=== PATIENT | female | born 1945 | race Caucasian/White ===

== ENCOUNTER 2016-07-12 13:17 | Outpatient (CLI) | payer MEDICARE | END 2016-07-12 13:18 | disposition home or self-care (01) | DX: Z12.31 Encounter for screening mammogram for malignant neoplasm of breast (principal) ==

== ENCOUNTER 2017-01-14 06:27 | Outpatient (CLI) | payer MEDICARE | END 2017-01-14 06:28 | disposition home or self-care (01) | LOC: LAB.R 06:27 | PROVIDERS: ATTEND Family Medicine | DX: L72.3 Sebaceous cyst (principal) | CPT/HCPCS: 87070; 87205 ==

== ENCOUNTER 2017-02-09 13:17 | Outpatient (CLI) | payer MEDICARE ==
--- NOTE | 2017-02-09 17:14 | MRI Report ---
EXAM: MRI BRAIN WITHOUT CONTRAST EXAM DATE: 02/09/2017 02:00 PM. CLINICAL HISTORY: TIA. COMPARISON: None. TECHNIQUE: Multiplanar, multisequence T1-weighted and fluid-sensitive MR sequences of the brain were performed. Sequences optimized for routine evaluation. Other: None. IV Contrast: None. FINDINGS: Brain Volume: Normal for age. Parenchyma/Dura: No mass, acute infarct or hemorrhage. No white matter lesions identified. No parench ymal microhemorrhages. Ventricles/Cisterns: No hydrocephalus. No abnormal extra-axial fluid collection or hemorrhage. Sinuses: No acute appearing sinus disease. Bones: No focal pathologic appearing marrow signal changes. Other: None. IMPRESSION: No evidence of acute or subacute infarct, intracranial hemorrhage, mass, midline shift, or hydrocepha preet. No significant white matter disease. Referring Provider Line: [phone] SITE ID: [id number]
== END 2017-02-09 13:18 | disposition home or self-care (01) ==
LOC: DI 13:17
PROVIDERS: ATTEND Family Medicine
DX: G45.9 Transient cerebral ischemic attack, unspecified (principal)
CPT/HCPCS: 70551

== ENCOUNTER 2017-04-22 14:13 | Outpatient (CLI) | payer MEDICARE | END 2017-04-22 14:14 | disposition home or self-care (01) | LOC: LAB.R 14:13 | PROVIDERS: ATTEND Physician Assistant Medical | DX: R31.9 Hematuria, unspecified (principal) | CPT/HCPCS: 87086 ==

== ENCOUNTER 2017-04-26 15:28 | Outpatient (CLI) | payer MEDICARE ==
[2017-04-26 19:16] LABS: BILIRUBIN,URINE NEGATIVE (NEGATIVE); GLUCOSE, URINE (UA) NEGATIVE (NEGATIVE); KETONES,URINE (UA) NEGATIVE (NEGATIVE); LEUKOCYTE ESTERASE, URINE NEGATIVE (NEGATIVE); NITRITE,URINE NEGATIVE (NEGATIVE); OCCULT BLOOD,URINE MODERATE (NEGATIVE); PROTEIN,URINE NEGATIVE (NEGATIVE); UROBILINOGEN,URINE 0.2 (NORMAL) E.U./dL (NORMAL)
[2017-04-26 19:36] LABS: CLARITY,URINE HAZY (CLEAR)
[2017-04-26 19:59] LABS: SQUAMOUS EPITHELIAL CELL,UR FEW Squamous (<= Few)
[2017-04-26 20:00] LABS: AMORPHOUS SEDIMENT,UR Marked /LPF; BACTERIA,URINE None Seen /HPF (None Seen)
== END 2017-04-26 15:29 ==
LOC: LAB.R 15:28
PROVIDERS: ATTEND Family Medicine
DX: R31.9 Hematuria, unspecified (principal)
CPT/HCPCS: 81001; 87086

== ENCOUNTER 2017-08-23 16:03 | Outpatient (CLI) | payer MEDICARE | END 2017-08-23 16:04 | disposition home or self-care (01) | LOC: DI 16:03 | PROVIDERS: ATTEND Family Medicine | DX: Z53.9 Procedure and treatment not carried out, unspecified reason (principal) ==

== ENCOUNTER 2017-09-06 13:44 | Outpatient (CLI) | payer MEDICARE, OTHER ==
--- NOTE | 2017-09-06 17:38 | Ultrasound Report ---
ULTRASOUND LEFT AXILLA: 09/06/2017 CLINICAL INDICATION: Axillary fullness. TECHNIQUE: Real-time scanning was performed with account services representative static images obtained. FINDINGS: Ultrasound of the left axilla was performed, directed to the region of fullness identified by the patient. Unremarkable subcutaneous fat is seen. No solid or cystic mass is appreciated. No axillary adenopathy is seen. IMPRESSION: NEGATIVE EXAMINATION. RECOMMENDATION: Routine annual screening unless otherwise clinically indicated. BI-RADS category 1 negative. TD: 09/06/2017 15:30
--- NOTE | 2017-09-06 17:45 | Mammography Report ---
DIGITAL DIAGNOSTIC BILATERAL MAMMOGRAM: 09/06/2017 CLINICAL INDICATION: Axillary fullness left side. COMPARISON: 07/12/2016, 06/13/2015, 05/14/2014, 03/17/2013. TECHNIQUE: Bilateral CC and MLO views, left true lateral view. A marker was placed in the site of fullness identified by the patient. FINDINGS: The breasts demonstrate scattered fibroglandular densities bilaterally. Punctate, typically benign calcifications are present. No suspicious masses, clustered microcalcifications, or regions of architectural distortion are identified. Specifically, no mammographic abnormality is seen high in the left axilla, at the site indicated by the marker. Please also refer to left breast ultrasound of the same day. IMPRESSION: BENIGN FINDINGS. RECOMMENDATION: Routine annual screening unless otherwise clinically indicated. BI-RADS category 2 benign findings. STANDARD QUALIFYING STATEMENTS 1. This examination was reviewed with the aid of Computed-Aided Detection (CAD) . 2. A negative or benign imaging report should not delay biopsy if clinically suspicious findings are present. Consider surgical consultation if warranted. More than 5 % of cancers are not identified by imaging. 3. Dense breasts may obscure an underlying neoplasm. TD: 09/06/2017 15:34 MARIA ISABEL
== END 2017-09-06 13:45 | disposition home or self-care (01) ==
LOC: DI 13:44
PROVIDERS: ATTEND Family Medicine
DX: R92.8 Other abnormal and inconclusive findings on diagnostic imaging of breast (principal)
CPT/HCPCS: 76642; 77066

== ENCOUNTER 2017-09-27 08:04 | Day surgery (SDC) | payer MEDICARE, OTHER ==
[2017-09-27] MEDS ORDERED: LACTATED RINGERS 1,000 ML IV ONE (08:39)
[2017-09-27] MEDS ORDERED: MIDAZOLAM 2 MG/2 ML VIAL IVP ONE (09:07)
[2017-09-27] MEDS ORDERED: fentaNYL 250 MCG/5 ML VIAL IVP ONE (09:07)
[2017-09-27 10:01] VITALS: BP 116/56
== END 2017-09-27 08:05 | disposition home or self-care (01) ==
LOC: SDS 08:04
PROVIDERS: ATTEND Surgery
PROC: 0DJD8ZZ Inspection of Lower Intestinal Tract, Via Natural or Artificial Opening Endoscopic (ICD-10-PCS; principal; 2017-09-27 09:15)
DX: Z12.11 Encounter for screening for malignant neoplasm of colon (principal); K57.90 Diverticulosis of intestine, part unspecified, without perforation or abscess without bleeding; Z86.010 Personal history of colon polyps; I10 Essential (primary) hypertension; E78.00 Pure hypercholesterolemia, unspecified; F41.9 Anxiety disorder, unspecified; Z87.891 Personal history of nicotine dependence
CPT/HCPCS: G0105; J3010; J7120

== ENCOUNTER 2018-03-30 12:57 | Outpatient (CLI) | payer MEDICARE, OTHER ==
--- NOTE | 2018-03-31 09:15 | DEXA Report ---
Reason: BONE DISORDER Procedure Date: 03/30/2018 Accession Number: [id number] / [id number] Procedure: DEX - Dexa Spine and/or Hip CPT Code: FULL RESULT: EXAM: Dexa Spine and/or Hip DATE: 03/30/2018 1:27 PM CLINICAL HISTORY: BONE DISORDER TECHNIQUE: Dual energy x-ray absorptiometry (DXA) was performed on a [employer] System. Regions measured are the AP Spine, femoral neck, and if needed forearm. COMPARISON: None. In accordance with the International Society for Clinical Densitometry (ISCD) guidelines, data from previous exams may be reanalyzed using current recommendations and techniques. This is done to allow a more accurate basis for comparison with the current study. FINDINGS: The data for the lumbar spine is as follows: BMD (g/cm/cm) T-SCORE Z-SCORE REGION L1 0.770 -3.0 -1.7 L2 0.959 -2.0 -0.7 L3 0.990 -1.8 -0.5 L4 0.995 -1.7 -0.4 TOTAL 0.930 -2.1 -0.8 NOTE: All evaluable vertebrae are used for classification The data for the hip is as follows: BMD (g/cm/cm) T-SCORE Z-SCORE REGION Neck 0.981 -0.4 1.1 TOTAL 1.091 0.7 1.9 NOTE: The femoral neck or total proximal femur, whichever is lowest, is used for classification. IMPRESSION: THE WHO CLASSIFICATION BASED ON THE INTERNATIONAL REFERENCE STANDARD IS OSTEOPENIA. THE FRACTURE RISK IS INCREASED. RECOMMENDATION: Patients with diagnosis of osteoporosis or osteopenia should have regular bone mineral density assessment. For those eligible for Medicare, routine testing is allowed once every 2 years. Testing frequency can be increased for patients who have rapidly progressing disease or for those who are receiving medical therapy to restore bone mass. COMMENT: World Health Organization (WHO) definitions for osteoporosis and osteopenia: NORMAL BMD: T-score at -1.0 or higher, fracture risk is low OSTEOPENIA BMD: T-score between -1.0 and -2.5, fracture risk is increased. OSTEOPOROSIS BMD: T-score at -2.5 or lower, fracture risk is high. National Osteoporosis Foundation recommends: 1. Obtain adequate dietary calcium (at least 1200 mg per day) and vitamin D (400-800 international units per day). 2. Participate, as appropriate, in regular weightbearing and muscle-strengthening exercise. 3. Avoid tobacco use and reduce alcohol and caffeine intake. 4. For more detailed information see the website at www.NOF.org.
== END 2018-03-30 12:58 | disposition home or self-care (01) ==
LOC: DI 12:57
PROVIDERS: ATTEND Family Medicine
DX: M85.89 Other specified disorders of bone density and structure, multiple sites (principal)
CPT/HCPCS: 77080

== ENCOUNTER 2018-10-09 13:19 | Outpatient (CLI) | payer MEDICARE, OTHER ==
--- NOTE | 2018-10-10 08:58 | Mammography Report ---
Reason: SCREENING MAMMO Procedure Date: 10/09/2018 Accession Number: [id number] / [id number] Procedure: SAMANTHA - Screening Mammo w/[facility] CPT Code: FULL RESULT: EXAM: Screening Mammo w/[facility] DATE: 10/09/2018 1:47 PM CLINICAL HISTORY: Screening encounter. Family history of breast cancer in the sister at the age of 76. TECHNIQUE: (B) - Bilateral CC and MLO views were obtained. COMPARISON: 09/06/2017 through 05/14/2014. PARENCHYMAL PATTERN: (A) - The breast(s) demonstrate(s) scattered fibroglandular densities. FINDINGS: There are no suspicious masses, calcifications, or areas of distortion. IMPRESSION: Negative examination. BI-RADS category 1. RECOMMENDATION: (ANNUAL) - Recommend routine annual screening mammography. BI-RADS CATEGORY: (1) - Negative. STANDARD QUALIFYING STATEMENTS: 1. This examination was not reviewed with the aid of Computer-Aided Detection (CAD). 2. A negative or benign imaging report should not preclude biopsy if clinically suspicious findings are present. 3. Dense breasts may obscure an underlying neoplasm. 4. This examination was reviewed with the aid of 3D breast imaging (tomosynthesis).
== END 2018-10-09 13:20 | disposition home or self-care (01) ==
LOC: DI 13:19
DX: Z12.31 Encounter for screening mammogram for malignant neoplasm of breast (principal); Z80.3 Family history of malignant neoplasm of breast
CPT/HCPCS: 77063; 77067

== ENCOUNTER 2019-11-07 10:08 | Outpatient (CLI) | payer MEDICARE, OTHER ==
--- NOTE | 2019-11-14 08:33 | Mammography Report ---
Reason: screening mammo Procedure Date: 11/12/2019 Accession Number: [id number] / [id number] Procedure: MGN - Screening Mammo w/[facility] CPT Code: Final Report FULL RESULT: BILATERAL DIGITAL SCREENING MAMMOGRAM 3D/2D: 11/12/2019 CLINICAL: Routine screening. Comparison is made to exams dated: 10/09/2018 mammogram, 09/06/2017 mammogram, and 07/12/2016 mammogram - [facility]. The tissue of both breasts is predominantly fatty. There are benign masses in both breasts. No significant masses, calcifications, or other findings are seen in either breast. There has been no significant interval change. IMPRESSION: There is no mammographic evidence of malignancy. A 1 year screening mammogram is recommended. This exam was interpreted at Station ID: [id number]. NOTE: For mammograms, a report in lay terms will be sent to the patient. Approximately 15% of breast malignancies will not be visualized mammographically. In the management of a palpable breast mass, a negative mammogram must not discourage biopsy of a clinically suspicious lesion. Electronically Signed By: Norman ballard/staci:11/13/2019 15:30:08 ACR BI-RADS Category 2: Benign Finding(s) 3342F A -Almost entirely fatty 2 Mammogram [id number] 1 year screening B
== END 2019-11-07 10:09 | disposition home or self-care (01) ==
LOC: DI.N 10:08
DX: Z12.31 Encounter for screening mammogram for malignant neoplasm of breast (principal)
CPT/HCPCS: 77063; 77067

== ENCOUNTER 2020-11-28 13:59 | Outpatient (CLI) | payer MEDICARE, OTHER ==
--- NOTE | 2020-12-01 15:52 | Mammography Report ---
BILATERAL DIGITAL SCREENING MAMMOGRAM 3D/2D: 11/28/2020 CLINICAL: Routine screening. Comparison is made to exams dated: 11/12/2019 mammogram, 11/07/2019 mammogram, 10/09/2018 mammogram, mammogram, and 07/12/2016 mammogram - [facility]. The tissue of both breast s is predominantly fatty. There are benign masses in both breasts. No significant masses, calcifications, or other findings are seen in either breast. There has been no significant interval change. IMPRESSION: BENIGN There is no mammographic evidence of malignancy. A 1 year screening mammogram is recommended. This exam was interpreted at Station ID: [id number]. NOTE: For mammograms, a report in lay terms will be sent to the patient. Approximately 15% of breast malignancies will not be visualized mammographically. In the management of a palpable breast mass, a negative mammogram must not discourage biopsy of a clinically suspicious lesion. Electronically Signed By: Norman ballard/staci:11/28/2020 16:52:01 ACR BI-RADS Category 2: Benign Finding(s) 3342F PARENCHYMAL PATTERN: (F) - The breast(s) demonstrate(s) diffuse fatty replacement. BI-RADS CATEGORY: (2) - 2 RECOMMENDATION: (ANNUAL) - Recommend routine annual screening mammography. [id number] 1 year screening LATERALITY: (B)
== END 2020-11-28 14:00 | disposition home or self-care (01) ==
LOC: DI 13:59
DX: Z12.31 Encounter for screening mammogram for malignant neoplasm of breast (principal)

== ENCOUNTER 2021-04-06 12:29 | Outpatient (CLI) | payer MEDICARE, OTHER ==
--- NOTE | 2021-04-06 15:27 | DEXA Report ---
PROCEDURE: Dexa Spine and/or Hip INDICATIONS: OSTEOPENIA TECHNIQUE: Dual energy x-ray absorptiometry (DXA) was performed on a [employer] System. Regions measur ed are the AP Spine, femoral neck, and if needed forearm. COMPARISON: 03/30/2018 FINDINGS: Lumbar Spine: Bone Mineral Density 1.042 g/cm/cm,T score -1.1, osteopenia Left Hip: Bone Mineral Density 1.117 g/cm/cm,T score 0.9, normal Left Femoral Neck: Bone Mineral Density 0.947 g/cm/cm, T score -0.7, normal IMPRESSION: Osteopenia with no significant change in bone mineral density when compared with 8 exam. Patients with diagnosis of osteoporosis or osteopenia should have regular bone mineral density assess ment. For those eligible for Medicare, routine testing is allowed once every 2 years. Testing frequ ency can be increased for patients who have rapidly progressing disease or for those who are receivin g medical therapy to restore bone mass. Reviewed by: Lavell Celestin MD on 04/06/2021 3:26 PM PST Approved by: Lavell Celestin MD on 04/06/2021 3:26 PM PST Station ID: [id number]
== END 2021-04-06 12:30 | disposition home or self-care (01) ==
LOC: DI 12:29
PROVIDERS: ATTEND Family Medicine
DX: M85.88 Other specified disorders of bone density and structure, other site (principal)

== ENCOUNTER 2023-04-29 10:41 | Outpatient (CLI) | payer MEDICARE, OTHER ==
--- NOTE | 2023-04-29 13:22 | XRAY Report ---
PROCEDURE: Chest 2V INDICATIONS: URI TECHNIQUE: 2 views of the chest were acquired. COMPARISON: None. FINDINGS: Surgical changes and devices: None. Lungs and pleura: No pleural effusions or pneumothorax. Lungs are clear. Mediastinum: Mediastinal contours appear normal. Heart size is normal. Bones and chest wall: No suspicious bony lesions. Overlying soft tissues appear unremarkable. IMPRESSION: No acute cardiopulmonary process. Reviewed by: Jane Valente MD on 04/29/2023 1:20 PM PST Approved by: Jane Valente MD on 04/29/2023 1:20 PM [facility] Station ID: [id number]
== END 2023-04-29 10:42 | disposition home or self-care (01) ==
LOC: DI 10:41
PROVIDERS: ATTEND Physician Assistant Medical
DX: J06.9 Acute upper respiratory infection, unspecified (principal)